=== PATIENT | female | born 1975 | race Caucasian/White ===

== ENCOUNTER 2024-07-28 07:44 | Emergency (ER) | payer BC, SELFPAY ==
[2024-07-28 07:49] VITALS: BP 139/76
[2024-07-28 08:14] LABS: Urine Albumin Negative (Neg - Trace); Urine Bilirubin Negative (Negative); Urine Character Clear (Clear); Urine Color Yellow; Urine Glucose 3+ (Negative); Urine Ketone Negative (Negative); Urine Leukocyte Negative (Negative); Urine Nitrite Negative (Negative); Urine Occult Blood Negative (Negative); Urine Specific Gravity 1.025 (<1.030); Urine Urobilinogen Negative (Neg - 1+)
[2024-07-28 08:15] LABS: % Basophils 0.2 % (0-2); % Eosinophils 1.2 % (0-6); % Immature Granulocytes 0.5 % (0-0.5); % Lymphocytes 25.5 % (20.5-51.1); % Monocytes 4.4 % (1.7-9.3); % Neutrophils 68.2 % (42.2-75.2); Absolute Eosinophils 0.1 10^3/uL (0-0.7); Absolute Immature Granulocytes 0.1 10^3/uL (0-0.05); Absolute Lymphocytes 2.5 10^3/uL (1.2-3.4); Absolute Monocytes 0.4 10^3/uL (0.1-0.6); Absolute Neutrophils 6.7 10^3/uL (1.4-6.5); Hematocrit 46.4 % (37.0-47.0); Hemoglobin 15.5 g/dL (12.0-16.0); Mean Corp Hgb Conc. 33.4 g/dL (33.0-37.0); Mean Corpuscular Hgb 27.6 pg (27.0-31.0); Mean Corpuscular Volume 82.6 fL (81.0-99.0); Nucleated Red Blood Cells % 0 %; Platelet Count 248 10^3/uL (130-400); Red Blood Cell Count 5.62 10^6/uL (4.20-5.40); Red Cell Dist. Width 13.1 % (11.5-14.5); White Blood Cell Count 9.8 10^3/uL (4.8-10.8)
[2024-07-28 08:28] LABS: ALT (SGPT) 18 U/L (0-35); AST (SGOT) 20 U/L (14-36); Albumin 4.2 g/dl (3.5-5.0); Alkaline Phosphatase 158 U/L (38-126); Blood Urea Nitrogen 13 mg/dl (7-17); Calcium 9.9 mg/dl (8.4-10.2); Carbon Dioxide 23 mmol/L (22-30); Chloride 105 mmol/L (98-107); Glucose 371 mg/dl (70-99); Lipase 287 U/L (23-300); Potassium 4.5 mmol/L (3.5-5.1); Sodium 139 mmol/L (135-145); Total Bilirubin 0.5 mg/dl (0.2-1.3); Total Protein 6.7 g/dl (6.3-8.2); eGFR > 60.00
--- NOTE | 2024-07-28 08:33 | ED.GENMED ---
History of Present Illness
General
Chief Complaint: Abdominal Symptoms
Source: patient
Time Seen by Provider: 07/28/24 08:24
History of Present Illness
History of Present Illness:
49-year-old female presents to the emergency room for evaluation of pain in her abdomen. She has had the pain for about 2 weeks. Pain is located in the area below her sternum down to her umbilicus. Pain has been constant. Eating seems to make it
worse. Nothing seems to make it better. Patient tried several days of Zantac without improvement. Patient endorses loose stools but has had this since she began Glucophage sometime ago. Patient also complaining of right flank pain which she
believes is related to a kidney stone as she does get kidney stones frequently. Patient has diabetes for which she takes metformin, glipizide and insulin. Despite this regiment she continues to have high blood sugars. Patient denies any fever.
She denies constipation. She has had a previous hysterectomy as well as a appendectomy. Patient endorses a 10 to 50 pound weight loss over the past 6 months which has not been intentional but she also attributes to her diabetes.
Phy Exam
Physical Exam
Physical Exam:
General: Awake, Alert, Oriented X3. No acute distress.
Vitals: unremarkable
Head: Atraumatic
Eyes: Pupils equal, EOMI
Throat: Airway intact, no exudates
Neck: Trachea midline
Lungs: Clear and equal b/l
Heart: Regular rate, no murmurs
Abd: Soft, mild tenderness diffusely with the most significant area of tenderness in the epigastrium. However no rebound, no guarding, No pulsatile mass
Neuro: Nonfocal
Skin: Warm, dry, no rash
Extremities: pulses equal b/l, no edema
Course
Orders/Labs/Results
Orders:
Orders
07/28/24 07:54
Electrocardiogram (*1) Urgent
Reason for Study: Abdominal Pain
07/28/24 07:55
EKG- Treatment ONCE
07/28/24 07:57
Complete Blood Count/With Diff Urgent
Comprehensive Metabolic Panel Urgent
HCG, Urine Qualitative Screen Urgent
Date Specimen was Collected: 07/28/24
Time Specimen was Collected: 07:55
Lipase Urgent
Urinalysis Reflex To Culture Urgent
Date Specimen was Collected: 07/28/24
Time Specimen was Collected: 07:55
07/28/24 08:33
CT Abd/pel W Iv And Oral Contr Urgent
Comment:
Reason For Exam: upper abdominal pain
Iohexol [Omnipaque] See Protocol PO NOW STA
07/28/24 08:57
Ondansetron Injectable [Zofran] 4 mg .ROUTE .STK-MED ONE
07/28/24 08:58
Ondansetron Injectable [Zofran] 4 mg IV NOW STA
07/28/24 09:15
Add On- LAB Urgent
Tests Added?: urine hcg
Abnormal Lab Results
07/28/24
07:57
RBC 5.62 H 10^6/uL
(4.20-5.40)
Abs Immat Gran (auto) 0.1 H 10^3/uL
(0-0.05)
Absolute Neuts (auto) 6.7 H 10^3/uL
(1.4-6.5)
Glucose 371 H mg/dl
(70-99)
Alkaline Phosphatase 158 H U/L
(38-126)
Urine Glucose 3+ A
(Negative)
07/28/24 07:57
07/28/24 07:57
Vital Signs
Initial and Last Documented VS:
Initial Vital Signs
Temp Pulse Resp BP Pulse Ox
98.0 F 73 16 139/76 98
07/28/24 07:49 07/28/24 07:49 07/28/24 07:49 07/28/24 07:49 07/28/24 07:49
Last Documented Vital Signs
Temp Pulse Resp BP Pulse Ox
98.0 F 57 16 115/64 98
07/28/24 07:49 07/28/24 09:01 07/28/24 09:01 07/28/24 09:01 07/28/24 09:01
MDM/Problems Addressed
Differential Diagnosis Includes:
Gastritis, peptic ulcer disease, cholecystitis, pancreatitis
MDM/Problems Addressed:
Patient has normal labs, normal imaging. Suspect gastritis. Will start proton pump inhibitor and recommend outpatient follow-up with GI
*Radiology
Radiology exam reviewed: radiology read reviewed
*Pulse Oximetry
Patient hypoxic: no
*Critical Care Note
Total Time (30-74mins, 75-104mins- exclusive of procedures): Not Applicable
ED Attending Note
-
Portions of this chart may have been created with voice recognition software.� Occasional wrong word or��sound alike� substitutions may have occurred due to the inherent limitations of voice recognition software.
Discharge Plan
Departure
Patient Disposition: Home (Routine Discharge)
Date of Disposition: 07/28/24
Time of Disposition: 12:23
Patient with high blood pressure during this ER visit?: No
Condition: Good
Discharge Problem:
Epigastric abdominal pain
Instructions: Abdominal Pain
Prescriptions:
New
pantoprazole [Protonix] 40 mg tablet,delayed release (DR/EC)
40 mg PO DAILY Qty: 30 0RF
Referrals:
Olga Beckett PA-C [Family Provider] -
David Estrella MD [Active] -
Interventions
Interventions:
*Risk Screen - Suicide Last Done: 07/28/24 07:49
*General Assessment Last Done: 07/28/24 09:16
*Neglect/Abuse Screening Last Done: 07/28/24 07:49
ED- Fall Risk Assessment Last Done: 07/28/24 10:07
*ED COVID-19 Vaccine History Last Done: 07/28/24 07:49
*Nursing Disposition Last Done: 07/28/24 12:41
BR-Yzzjsl-Jdssdufxjr Assessment Last Done: 07/28/24 09:16
Discharge Date and Time
Discharge Date/Time: 07/28/24 12:42
Print Language: S[place]
[2024-07-28] MEDS: OMNIPAQUE 50 ML PO (08:47)
[2024-07-28] MEDS: ZOFRAN 4 MG IV (08:58)
[2024-07-28 09:00] VITALS: BMI 22.0
[2024-07-28 09:01] VITALS: BP 115/64
[2024-07-28 10:01] LABS: HCG, Urine Qualitative Screen Negative
== END 2024-07-28 12:42 | disposition home or self-care (01) ==
LOC: EMR 07:44
PROVIDERS: Emergency Medicine; EMERGENCY PHYSICIAN Emergency Medicine; FAMILY PHYSICIAN Physician Assistant
DX: R10.13 Epigastric pain (principal); E11.9 Type 2 diabetes mellitus without complications
CPT/HCPCS: 99285; 96374; 74177; 80053; 81003; 81025; 83690; 85025; 93005; Q9967

== ENCOUNTER 2024-09-06 08:59 | Emergency (ER) | payer BC, SELFPAY ==
[2024-09-06 09:02] VITALS: BP 123/73
--- NOTE | 2024-09-06 09:37 | ED.GENMED ---
History of Present Illness
General
Chief Complaint: Headache
Source: patient
Exam Limitations: none
Time Seen by Provider: 09/06/24 09:08
Nursing documentation reviewed up to this point in time: agreed with
History of Present Illness
History of Present Illness:
49 y/o F
poorly controlled type II IDDM
hypothyroid, hld
3-4 weeks of frequent headaches, posterior scalp region that feel like pressure. they come and go and usually aren't too debilitating. over the course of the past 3 weeks, she has had 2 or 3 which require her to lay down and turn lights off.
usually responds to motrin.
pt says also within this time frame she developed pain in her R shoulder region to upper arm and right hip/back and right thigh
the pain in her RUE is much less than her RLE
it feels like throbbing pain, achy and burning sometimes
she also feels a little weaker on this side but attributes that to pain
she has not had trauma, incontience, fever/chills, IVDA.
pt also feels pain in her R pelvis. she says when she pushes this area she thinks it makes her right thigh feel worse
pt has no chronic neck or back issues
she previously was follwoed by neurology for migraines, was on immitrex but it caused rebound headaches, so she stopped it. she had brain MRI showign 'lesions' that were never really identified she says - there was a question whether she had
atypical MS or lyme disesase she says but no further work upw as done.
pt is also a cancer survivor
age 21 had stage III (?) cervical cancer
she says it spread to a spot on her R ovary
ultimately she had chemo and radiation and then a hysterectomy where they removed just her uterus and left her ovaries.
Phy Exam
Physical Exam
Physical Exam:
GENERAL: Alert , in no apparent distress
HEAD: NCAT
EYE: pupils equal and reactive, no nystagmus, no photophobia
NECK: Supple,full rom, nontender
ENT: o/p clr, mmm.
CARDIAC: Regular rate and rhythm . no edema
LUNGS: Clear breath sounds bilaterally, no acute respiratory distress, no wheezes/rales/rhonchi
ABDOMEN: Soft, without focal tenderness, no r/g, no cvat
no inguinal HALEIGH
NEUROLOGICAL: Alert and orientedx 4, cn intact, no facial asymmetry, 5/5 strength in UE/LE, sensation intact, romberg neg, ambulates without assistance, neg pronator drift
SKIN: Warm and dry, skin intact.
back: nontender midline, rani mild right lumbar tendenress
neg straight leg raise
MUSCULOSKELETAL: right hip mild pain with rotation and flexion; no joitn swelling
normal leg inspection
no swelling
normal perfusion and sensation
PSYCH: Normal and appropriate interaction.
Course
Orders/Labs/Results
Orders:
Orders
09/06/24 09:30
Ketorolac [Toradol] 30 mg IV NOW STA
09/06/24 09:33
Test Result ONCE
09/06/24 09:45
CT Head W/o Iv Contrast Urgent
Comment:
Reason For Exam: headaches x 3 weeks RUE/RLE pain
09/06/24 09:51
BHB [B-Hydroxybutyrate] Urgent
Comprehensive Metabolic Panel Urgent
HCG, Serum Qualitative Screen Urgent
Lipase Urgent
Magnesium Urgent
09/06/24 09:52
Complete Blood Count/With Diff Urgent
Free T4 Urgent
TSH Reflex To Free T4 Urgent
Urinalysis Reflex To Culture Urgent
Date Specimen was Collected: 09/06/24
Time Specimen was Collected: 09:42
09/06/24 12:25
Hip, Right 2-3 Views [CR Hip - RT w/wo Pel 2-3 Vw*] Urgent
Comment:
Reason For Exam: right hip pain
Include a pelvis x-ray?: Yes
Lumbar Spine Complete, 4 View [CR Lumbar Spine Comp Min 4 Vw*] Urgent
Comment:
Reason For Exam: right back pain/hip pain
Abnormal Lab Results
09/06/24 09/06/24
09:51 09:52
RBC 5.55 H 10^6/uL
(4.20-5.40)
Creatinine 0.5 L mg/dL
(0.6-1.0)
Glucose 289 H mg/dl
(70-99)
Alkaline Phosphatase 149 H U/L
(38-126)
TSH (Reflex) < 0.02 L uIU/ml
(0.47-4.68)
Urine Glucose 3+ A
(Negative)
09/06/24 09:52
09/06/24 09:51
Vital Signs
Initial and Last Documented VS:
Initial Vital Signs
Temp Pulse Resp BP Pulse Ox
97.6 F 78 16 123/73 99
09/06/24 09:02 09/06/24 09:02 09/06/24 09:02 09/06/24 09:02 09/06/24 09:02
Last Documented Vital Signs
Temp Pulse Resp BP Pulse Ox
97.7 F 59 16 127/62 98
09/06/24 12:30 09/06/24 13:36 09/06/24 09:02 09/06/24 13:36 09/06/24 13:36
MDM/Problems Addressed
Differential Diagnosis Includes:
brain tumor, arthritis, arhtalgia, neuropathy,
recent CAT SCAN OF ABDOMEN 1 MO AGO neg
MDM/Problems Addressed:
49 y/o F
IDDM, hypothyroid
multiple complaints
weeks of headache, joint pains, burning feeling
no trauma
has had poorly conrtollled BG and has not seen endocrine
a1c is 15
she says she is compliant with meds
also is on thyroid meds
her exam is most consistent with pain in the R hip with movement/rotatoin but normal neuro
no swelling, normal perfusion, no color change, normalsensation
no pelvic tendenress/inguinal HALEIGH
screening work up here reveals nonaniongap hyperglycemia
tsh <0.02 with normal free t4 --> subclincal hyperthyroidism
head ct neg
recent ct imaging of A/P reviewed
d/w mena ttending
and with endocrionologist
will recduce her msytnrhoid to 150 mcg fro 175 mcg
f/u with endocrine and pcp
*Critical Care Note
Total Time (30-74mins, 75-104mins- exclusive of procedures): Not Applicable
ED Attending Note
-
Portions of this chart may have been created with voice recognition software.� Occasional wrong word or��sound alike� substitutions may have occurred due to the inherent limitations of voice recognition software.
Discharge Plan
Departure
Patient Disposition: Home (Routine Discharge)
Date of Disposition: 09/06/24
Time of Disposition: 13:06
Patient with high blood pressure during this ER visit?: No
Condition: Fair
Covid-19: Not Applicable
Discharge Problem:
Headache, Radiculopathy, Joint pain, Hyperthyroidism, subclinical
Instructions: Headache, Adult (DC), Joint Pain
Prescriptions:
New
meloxicam 15 mg tablet
15 mg PO DAILY PRN (Reason: pain) Qty: 7 0RF
levothyroxine 150 mcg capsule
150 mcg PO DAILY Qty: 30 0RF
No Action
pantoprazole [Protonix] 40 mg tablet,delayed release (DR/EC)
40 mg PO DAILY Qty: 30 0RF
Referrals:
Olga Beckett PA-C [Family Provider] - Follow up in 2-3 days
Activity Restrictions/Additional Instructions:
Were not entirely sure the cause of your symptoms. Your blood work does show that your blood sugar is elevated and your thyroid level is not controlled. You are overmedicated. I did speak briefly with the workflow developer who recommended you going
down to 150 mcg of levothyroxine. You should have blood work in 6 weeks to recheck
follow up with the workflow developer
your head ct was negative
you should follow up with your family doctor for further work up
in the meantime, try meloxicam 15 mg once a day for 5 days.
this is an antiinflammatory stronger than ibuprofen
take tylenol every 6 hours as needed
return for any concers like:
joint swelling, fever, weakness in the legs, numbness that is worsening, incontiencne etc
you may need more testing
your cat scan from 1 month ago did not show anything suspicious in your abdomen/pelvis.
Interventions
Interventions:
*Risk Screen - Suicide Last Done: 09/06/24 09:02
*General Assessment Last Done: 09/06/24 09:02
*Neglect/Abuse Screening Last Done: 09/06/24 09:02
ED- Fall Risk Assessment Last Done: 09/06/24 13:36
*ED COVID-19 Vaccine History Last Done: 09/06/24 09:40
*Nursing Disposition Last Done: 09/06/24 13:36
ED- Neurological Assessment Last Done: 09/06/24 10:19
Discharge Date and Time
Discharge Date/Time: 09/06/24 13:37
Print Language: SPANISH
[2024-09-06] MEDS: TORADOL 30 MG IV (09:49)
[2024-09-06 09:54] VITALS: BMI 20.9
[2024-09-06 10:05] LABS: % Basophils 0.2 % (0-2); % Eosinophils 1.7 % (0-6); % Immature Granulocytes 0.4 % (0-0.5); % Lymphocytes 31.9 % (20.5-51.1); % Neutrophils 57.8 % (42.2-75.2); Absolute Eosinophils 0.1 10^3/uL (0-0.7); Absolute Lymphocytes 1.7 10^3/uL (1.2-3.4); Absolute Monocytes 0.4 10^3/uL (0.1-0.6); Absolute Neutrophils 3.1 10^3/uL (1.4-6.5); Hematocrit 46.6 % (37.0-47.0); Hemoglobin 15.7 g/dL (12.0-16.0); Mean Corp Hgb Conc. 33.7 g/dL (33.0-37.0); Mean Corpuscular Hgb 28.3 pg (27.0-31.0); Nucleated Red Blood Cells % 0 %; Platelet Count 191 10^3/uL (130-400); Red Blood Cell Count 5.55 10^6/uL (4.20-5.40); Red Cell Dist. Width 12.9 % (11.5-14.5); White Blood Cell Count 5.4 10^3/uL (4.8-10.8)
[2024-09-06 10:13] LABS: HCG, Serum Qualitative Screen Negative
[2024-09-06 10:17] LABS: ALT (SGPT) 21 U/L (0-35); AST (SGOT) 21 U/L (14-36); Albumin 4.3 g/dl (3.5-5.0); Alkaline Phosphatase 149 U/L (38-126); Blood Urea Nitrogen 12 mg/dl (7-17); Calcium 9.9 mg/dl (8.4-10.2); Carbon Dioxide 28 mmol/L (22-30); Chloride 101 mmol/L (98-107); Estimated Creatinine Clearance 94 ml/min; Glucose 289 mg/dl (70-99); Lipase 87 U/L (23-300); Magnesium 1.7 mg/dl (1.6-2.3); Potassium 3.9 mmol/L (3.5-5.1); Sodium 139 mmol/L (135-145); Total Bilirubin 0.6 mg/dl (0.2-1.3); Total Protein 6.9 g/dl (6.3-8.2); eGFR > 60.00
[2024-09-06 10:23] LABS: B-Hydroxybutyrate 0.14 mmol/L (0.02-0.27)
[2024-09-06 10:25] LABS: Urine Albumin Negative (Neg - Trace); Urine Bilirubin Negative (Negative); Urine Character Clear (Clear); Urine Color Yellow; Urine Glucose 3+ (Negative); Urine Ketone Negative (Negative); Urine Leukocyte Negative (Negative); Urine Nitrite Negative (Negative); Urine Occult Blood Negative (Negative); Urine Urobilinogen Negative (Neg - 1+)
[2024-09-06 10:48] LABS: TSH Reflex To Free T4 < 0.02 uIU/ml (0.47-4.68)
[2024-09-06 11:17] LABS: Free T4 1.54 ng/dl (0.78-2.19)
[2024-09-06 12:30] VITALS: BP 109/65
[2024-09-06 13:36] VITALS: BP 127/62
== END 2024-09-06 13:37 | disposition home or self-care (01) ==
LOC: EMR 08:59
PROVIDERS: Physician Assistant; EMERGENCY PHYSICIAN Emergency Medicine; FAMILY PHYSICIAN Physician Assistant
DX: R51.9 Headache, unspecified (principal); M25.511 Pain in right shoulder; M25.551 Pain in right hip; M79.651 Pain in right thigh; M79.601 Pain in right arm; E05.90 Thyrotoxicosis, unspecified without thyrotoxic crisis or storm; M54.10 Radiculopathy, site unspecified; E03.9 Hypothyroidism, unspecified; E78.5 Hyperlipidemia, unspecified; E11.9 Type 2 diabetes mellitus without complications; Z85.41 Personal history of malignant neoplasm of cervix uteri; Z92.3 Personal history of irradiation; Z92.21 Personal history of antineoplastic chemotherapy; Z79.4 Long term (current) use of insulin; Z88.5 Allergy status to narcotic agent
CPT/HCPCS: 99284; 96374; 70450; 72110; 73502; 80053; 81003; 82010; 83690; 83735; 84439; 84443; 84703; 85025